=== PATIENT | female | born 1945 | race Caucasian/White ===

== ENCOUNTER 2016-06-24 15:39 | Emergency (ER) | payer OTHER ==
--- NOTE | 2016-06-24 18:06 | DIAGNOSTIC IMAGING REPORT ---
PROCEDURE: XR CHEST 2 VIEW INDICATION: CHEST PAIN TECHNIQUE: PA and lateral view. COMPARISON: None. FINDINGS: Hyperinflation with mildly increased right apical density suggestive of an infiltrate or possibly a mass. Left lung is clear. Heart size, mediastinum and pulmonary vessels are normal. Old right seventh rib fracture. IMPRESSION: 1. Small right apical infiltrate versus pulmonary nodule versus summation artifact. Recommend lordotic view. 2. Hyperinflation 3. Results discussed with Dr. Walker
--- NOTE | 2016-06-24 18:41 | DIAGNOSTIC IMAGING REPORT ---
PROCEDURE: XR CHEST 1 VIEW INDICATION: Follow-up right apical infiltrate versus nodule. TECHNIQUE: Portable AP lordotic view (1820 hours) COMPARISON: Compared to chest x-ray earlier today (06/24/2016, 1745 hours). FINDINGS: Findings suggest mild biapical symmetric parenchymal scarring. Lungs are otherwise clear. Heart and mediastinum are normal. There is an old right seventh lateral rib fracture. IMPRESSION: 1. Chronic obstructive pulmonary disease. 2. Findings suggest mild biapical parenchymal scarring. 3. Otherwise negative chest. 4. Findings discussed with Dr. Willie Walker.
--- NOTE | 2016-06-24 22:17 | ED CLINICAL REPORT ---
Clinical Report - Physicians/Mid Levels [facility] [address] [place] [address] 06/24/2016 15:40 Patient: WALLY MAIER Time Seen: 16:21. Historian- patient. CPT: ER phys charges level 5 plus (#[id number]). EKG interpretation (#[id number]). HISTORY OF PRESENT ILLNESS Chief Complaint: CHEST PAIN and DISCOMFORT. At its maximum, severity described as 10 / 10. When seen in the E.D., severity described as 3 / 10. (CHEST DISCOMFORT and (felt like indigestion, but states it was higher in her chest than indigestion. also c/o left arm discomfort, shakey, new headache that is different from her usual headaches.). She denies any history of heart disease and reflux GI problems or pulmonary problems. Risk factors positive for smoking cholesterol and family history. patient indicates that she had severe chest pain all day yesterday at a level of 10 out of 10. That it felt like bad indigestion so she did not come in. This pain lasted most of the day and then got better today. Today the pain as a 3 out of 10. Nothing seemed to make it better or worse. She was able to take deep breaths exercise and eat without any change in the pain. She's never had this pain before. She has had no fever sweats chills nausea vomiting or diarrhea. No cough or dyspnea or abdominal pain.). Is still present. Onset during light activity. It is described as burning and "pain" and it is described as located in the right chest, central chest and left chest area. No nausea, vomiting or diaphoresis. She has had difficulty breathing. Similar symptoms previously: None. Recent medical care: Not recently seen/assessed. REVIEW OF SYSTEMS No fever, chills, cough, pedal edema or calf pain. No fainting episodes, sore throat, abdominal pain, black stools or difficulty with urination. No skin rash, enlarged lymph nodes, joint pain or bloody stools. All systems otherwise negative, except as recorded above. PAST HISTORY Hyperlipidemia. Back surgery - Cyst removed. Herpes Zoster. No history of aortic disease, coronary artery disease, heart disease, lung disease or GI disease. No history of congestive heart failure, heart rhythm problems, hypertension or diabetes mellitus. Medications: Topical Medical Marijuana (for shingles pain). Vitamin c Oral. Vitamin D Oral. Calcium. Ibuprofen Oral, as needed. Effexor XR Oral, daily. Vitamins/Minerals Oral. Allergies: No Known Drug Allergy. SOCIAL HISTORY Heavy tobacco smoker (cigarette)- 1 pack per day. Occasional alcohol use. FAMILY HISTORY History of heart disease with premature onset. ADDITIONAL NOTES The nursing notes have been reviewed. PHYSICAL EXAM Vital Signs: 06/24/2016 16:08 BP: 135/67. HR: 76. RR: 16. O2 saturation: 100%. Temp: 97.8 F. Pain level now: 310. Appearance: Alert. No acute distress. Anxious. Eyes: Pupils equal, round and reactive to light. Eyes normal inspection. ENT: Ears normal. Nose normal. Pharynx normal. Neck: Normal inspection. Neck supple. CVS: Normal heart rate and rhythm. Heart sounds normal. Pulses normal. Respiratory: No respiratory distress. Breath sounds normal. Chest nontender. Abdomen: Soft and nontender. Bowel sounds normal. No mass. Back: Normal external inspection. Skin: Skin warm. Normal skin color. No rash. Extremities: Extremities exhibit normal ROM. No lower extremity edema. Neuro: Oriented X 3. No motor deficit. No sensory deficit. Reflexes normal. LABS, X-RAYS, AND EKG EKG: Normal EKG. Chest X-ray: Small, patchy infiltrate in the right apex and right upper lobe. Hyperinflation present. Flattening of the hemidiaphragm. (Will get lordotic view.). Views: PA and lateral. Technique: good. The X-rays were independently viewed by me, interpreted by the radiologist and discussed with the radiologist. Laboratory Tests: CBC w Diff: (ARAM: 06/24/2016 16:28) ( MsgRcvd 06/24/2016 17:41) Final results Test Result Flag Units (Reference) WHITE BLOOD COUNT 10.2 K/uL (4.5-11.5) RED BLOOD COUNT 4.50 M/uL (4.00-5.20) HEMOGLOBIN 14.2 gm/dL (12.0-16.0) HEMATOCRIT 43.2 % (36.0-46.0) MEAN CELL VOLUME 96 fL (80-100) MEAN CORPUSCULAR HGB 32 pg (26-34) MEAN CORPUSCULAR HGB CONC 33 g/dL (31-37) RED CELL DISTRIBUTION WIDTH 14.4 % (11.6-14.8) PLATELET COUNT 308 K/uL (150-400) NEUTROPHIL % 70.6 % (50-75) LYMPH % 21.4 L % (25-40) MONO % 6.7 % (3-14) EOSINOPHIL % 1.1 % (0-4) BASOPHIL % 0.2 % (0-2) [id number]: (ARAM: 06/24/2016 16:28) ( [facility] 06/24/2016 18:33) Final results Test Result Flag Units (Reference) D-DIMER QUANTITATIVE 0.32 ug/mLFEU (0.27-0.52) The primary value of this quantitative assay relates toits negative predictive value (i.e. exclusion) of pulmonaryembolism/deep vein thrombosis/DIC.Elevated levels of d-dimer may also occur with:, age, cancer, inflammation, liver disease,post-op, infection, hematoma, coronary disease, peripheralarteriopathy, bleeding disorders and thrombolytic treatment.Results should be correlated with other clinical andradiological data.Testing Methodology: Latex Immunoassay Lipase: (ARAM: 06/24/2016 16:28) ( [facility] 06/24/2016 18:03) Final results Test Result Flag Units (Reference) LIPASE 274 U/L (73-393) AMYLASE 97 U/L (25-115) BNP: (ARAM: 06/24/2016 16:28) ( [facility] 06/24/2016 18:08) Final results Test Result Flag Units (Reference) B-TYPE NATRIURETIC PEPTIDE 67.6 pg/ml (5-100) CHEM 13 PANEL: (ARAM: 06/24/2016 16:28) ( [facility] 06/24/2016 18:02) Final results Test Result Flag Units (Reference) GLUCOSE 99 mg/dL (70-110) BUN 16 mg/dL (7-18) CREATININE 0.8 mg/dL (0.6-1.3) Estimated GFR >60 mL/min Estimated GFR- >60 mL/min Note: Persistent reduction over 3 months in eGFR<60 mL/min/1.73 m2 defines CKD. Patients with eGFR values>=60 mL/min/1.73 m2 may also have CKD if evidence ofpersistent proteinuria. Additional information may be foundat [email or web address].org. SODIUM 143 mmol/L (136-145) POTASSIUM 3.6 mmol/L (3.5-5.1) CHLORIDE 103 mmol/L (98-107) CARBON DIOXIDE 29 mmol/L (21-32) CALCIUM 9.6 mg/dL (8.5-10.1) TOTAL PROTEIN 8.3 H g/dL (6.4-8.2) ALBUMIN 4.4 g/dL (3.3-5.0) BILIRUBIN, TOTAL 0.7 mg/dL (0.0-1.0) ALKALINE PHOSPHATASE 64 U/L (46-116) AST (SGOT) 27 U/L (15-37) ALT (SGPT) 26 U/L (12-78) MAGNESIUM 2.1 mg/dL (1.8-2.4) CPK 76 U/L (24-260) TROPONIN I 0.05 ng/mL (0.00-1.5) TROPONIN REFERENCE RANGE:<0.1 NEGATIVE0.1-1.5 INDETERMINANT>1.5 POSITIVE . Note - Tests: (Lordotic CXR patchy infiltrates , bilateral apices, right greater than left.). PROGRESS AND PROCEDURES Course of Care: Heplock ASA 325 mg po White GI cocktail. 18:06 06/24/16. Discussed with radiologist and the patient has a right apical infiltrate. This will be reassessed with lordotic view chest x-ray. We'll also had a d-dimer. Pt with a day and a half of pain with 2 negative troponins. Pt has been pain free. Pt wants to go home.; Will discharge to follow up tomorrow,. Patient/family counseled. Disposition: Discharged. Condition: stable. CLINICAL IMPRESSION Atypical chest pain .12 lead EKG performed. Right upper lobe patchy infiltrate. INSTRUCTIONS No strenuous activity. Rest. Avoid stimulants (such as cigarettes, coffee, cold medicines, sinus medicines, street drugs). Warnings: Further evaluation is necessary. GENERAL WARNINGS: Return or contact your physician immediately if your condition worsens or changes unexpectedly, if not improving as expected, or if other problems arise. Prescription Medications: Carafate 1 gm tablets: take 1 orally four times daily (1 hour before meals and at bedtime). Dispense sixty (60). No refills. Substitution is permissible. Prilosec 40 mg capsules: take 1 capsule orally every day for 10 days. Dispense ten (10). No refill. Substitution is permissible. Follow-up: Return to the emergency department If pain returns. Follow up with your doctor tomorrow in one day. Call for the next available appointment. Reason for referral: For chest pain and for finding on your right lung that needs a CT scan. Understanding of the discharge instructions verbalized by patient. (Electronically signed by Willie Walker MD 06/28/2016 1:19)
--- NOTE | 2016-06-24 22:17 | ED ORDER SUMMARY ---
..... Patient: WALLY MAIER OrderSheet [facility] VisitID: [id number] [place] [address] 70y, F Registration Date/Time: 06/24/2016 ORDER SHEET Weight: 43.5 kg (stated) Allergies: No Known Drug Allergy GENERAL ORDERS: EKG - ER Stat (16:23 06/24/2016 JSimbeck R.N. per protocol) (Ack 16:25 TBergley) (16:43 JSimbeck R.N.) Chest 2V Urgent (17:34 06/24/2016 Payton BWOLING) (Ack 17:36 TBergley) (17:56 JSimbeck R.N.) Forklift Supervisor (Continuous) (17:34 06/24/2016 Payton BOWLING) (Ack 17:36 TBergley) (17:38 JSimbeck R.N.) Cardiac Panel Stat (17:35 06/24/2016 Payton BOWLING) (Ack 17:36 TBergley) (17:37 JSimbeck R.N.) BNP Urgent (17:35 06/24/2016 Payton BOWLING) (Ack 17:36 TBergley) (17:37 JSimbeck R.N.) Oxygen (2 L/min) (NC) (17:35 06/24/2016 Payton BOWLING) (Ack 17:36 TBergley) (17:38 JSimbeck R.N.) Pulse oximeter (17:35 06/24/2016 Payton BOWLING) (Ack 17:36 TBergley) (17:38 JSimbeck R.N.) Amylase Urgent (17:47 06/24/2016 Payton BOWLING) (Ack 17:49 TBergley) (17:56 JSimbeck R.N.) Lipase Urgent (17:47 06/24/2016 Payton BOWLING) (Ack 17:49 TBergley) (17:56 JSimbeck R.N.) D-Dimer Urgent (18:05 06/24/2016 Payton BOWLING) (Ack 18:08 TBergley) (19:50 TBergley) Chest 1V (lordotic view to evaluate RUL infiltrate. ) Urgent (18:05 06/24/2016 Payton BOWLING) (Ack 18:08 TBergley) (18:29 Rod) Troponin-I Urgent (22:28 06/24/2016 Payton BOWLING) (Ack 22:28 TBergley) MEDICATION ORDERS: Aspirin PO 325 mg (NOW) (17:35 06/24/2016 Payotn BOWLING) (Ack 17:47 Jameseck R.N.) (17:56 Jameseck R.N.) GI Cocktail WHITE PO 50 mL (NOW) (17:35 06/24/2016 Payton BOWLING) (Ack 17:47 Jameseck R.N.) (17:56 Jameseck R.N.) Alprazolam PO 0.5 mg (NOW) (19:54 06/24/2016 Payton BOWLING) (19:57 DARAeyer R.N.) Carafate PO 20 ml (NOW) (22:47 06/24/2016 Payton BOWLING) (23:16 DBeyer R.N.) Protonix PO 40 mg (NOW) (22:48 06/24/2016 Payton BOWLING) (23:16 DBeyer R.N.) IV FLUIDS: IV Saline Lock (16:43 06/24/2016 Emerald R.N. per protocol) (16:43 Jameseck R.N.) ORDER SHEET NOTES: [Electronically signed by Niko Bridges R.N. (04:53 06/25/2016)] [Electronically signed by Willie Walker MD (01:19 06/28/2016)] [Electronically locked/signed by Niko Bridges R.N. (04:53 06/25/2016)]
--- NOTE | 2016-06-24 22:17 | ED NURSING NOTES ---
Clinical Report - Nurses [facility] [address] [place] [address] 06/24/2016 15:40 Patient: WALLY MAIER TRIAGE Triage time 16:05. Acuity: LEVEL 3. Chief Complaint: CHEST DISCOMFORT and (felt like indigestion, but states it was higher in her chest than indigestion. also c/o left arm discomfort, shakey, new headache that is different from her usual headaches.). 16:19 06/24/16. SEPSIS SCREEN: Sepsis Screen. Negative (no infection suspected/documented). SORAIDA COMA SCORE: Drury Coma Scale: 10- eyes open spontaneously (4); best motor response- obeys commands (6). --16:19 Vincent Mantilla R.N. 16:08 06/24/16. BP: 135/67. HR: 76. RR: 16. O2 saturation: 100% on room air. Temp: 97.8 F (oral). Pain level now: 3/10. Additional comments: (headache is 3/10, chest 1/10). --16:19 Vincent Mantilla R.N. Weight: 43.5 kg stated. Height/Length: 64 inches Per Patient. BMI: 16.5. --16:14 Vincent Mantilla R.N. Medications Vitamins/Minerals Oral. --16:10 Vincent Mantilla R.N. Effexor XR Oral, daily. --16:10 Vincent Mantilla R.N. Ibuprofen Oral, as needed. --16:11 Vincent Mantilla R.N. Calcium. --16:11 Vincent Mantilla R.N. Vitamin D Oral. --16:12 Vincent Mantilla R.N. Vitamin c Oral. --16:12 Vincent Mantilla R.N. Topical Medical Marijuana (for shingles pain). --16:15 Vincent Mantilla R.N. Allergies No Known Drug Allergy. --16:10 Vincent Mantilla R.N. History Arrived by private vehicle. Historian: patient. This started yesterday. SOCIAL HX: Heavy tobacco smoker (cigarette)- less than 1 pack per day. Occasional alcohol use. No drug use. ABUSE ASSESSMENT: No report of abuse. --16:19 Vincent Mantilla R.N. PROBLEMS: Herpes Zoster. --16:13 Vincent Mantilla R.N. ADDITIONAL SURGERIES: Back surgery - Cyst removed. --16:13 Vincent Mantilla R.N. Interventions ID band on patient. To treatment room. --16:19 Vincent Mantilla R.N. NURSING PROGRESS NOTES 16:38 06/24/2016 Site #1 started via IV in the right antecubital space with an 20g angiocath, with aseptic technique and good blood return; one attempt. Blood drawn: rainbow set. Labeled in the presence of the patient and sent to the lab. Saline lock flushed with 10 mL saline. --16:42 Vincent Mantilla R.N. EKG time: (1645). EKG was performed by a tech and shown to the ED physician. --16:55 Denise Church 17:50 06/24/2016 Aspirin PO Tablets 325 mg given. Allergies verified and confirmed 5 rights. --17:56 Vincent Mantilla R.N. 17:50 06/24/2016 GI COCKTAIL WHITE (Simethicone) PO Oral Suspension 50 mL given. Allergies verified and confirmed 5 rights. --17:56 Vincent Mantilla R.N. 19:03 06/24/2016 GI COCKTAIL WHITE PO Response: no adverse reaction symptoms are the same. The patient feels the same. --19:03 Vincent Mantilla R.N. 19:03 06/24/16. Care transferred and report given (RITO Pope). --19:03 Vincent Mantilla R.N. 19:22 06/24/16. BP: 121/55. HR: 70. O2 saturation: 100%. --19:23 Niko Bridges R.N. ( Pain is 1/10 GI cocktail no relief). --19:23 Niko Bridges R.N. 19:57 06/24/2016 Alprazolam PO 0.5 mg given. Allergies verified, confirmed 5 rights and sedative warning given. --19:57 Niko Bridges R.N. ( Pt resting in bed informed of plan to admit verbalized understanding.). --20:06 Niko Bridges R.N. ( pt ambulated to bathroom steady on her feet.). --21:12 Niko Bridges R.N. 21:12 06/24/16. BP: 132/71. HR: 76. --21:12 Niko Bridges R.N. 21:24 06/24/16. O2 saturation: 97%. --21:24 Niko Bridges R.N. 22:07 06/24/16. BP: 103/46. O2 saturation: 99%. --22:07 Niko Bridges R.N. ( pt resting in bed denies needs at this time). --22:11 Niko Bridges R.N. 22:40 06/24/16. BP: 110/56. O2 saturation: 96%. --22:40 Niko Bridges R.N. 23:16 06/24/2016 Carafate (Sucralfate) PO 2 gm given. Allergies verified and confirmed 5 rights. --23:16 Niko Bridges R.N. 23:16 06/24/2016 Protonix (Pantoprazole Sodium) PO 40 mg given. Allergies verified and confirmed 5 rights. --23:16 Niko Bridges R.N. DISPOSITION / DISCHARGE 23:18 06/24/16. BP: 123/65. HR: 70. RR: 18. O2 saturation: 96%. Temp: 98.3 F. Pain level now 06/08. --23:19 Niko Bridges R.N. 23:27 06/24/2016 Site #1 removed upon discharge. Bandage applied. --23:27 Niko Bridges R.N. Departure time: 2324. Discharge instructions provided and reviewed with the patient and family. Reviewed medication(s) information. Patient and family verbalized understanding. Written instructions provided in [place]. The patient was discharged by the physician. She was discharged home and accompanied by family. She left the Emergency Department ambulatory and via private vehicle. Family member driving. ( Pt ambulated on discharge verbalized understanding of discharge instructions and follow up care). --23:28 Niko Bridges R.N. Locked/Released at 06/25/2016 4:53 by Niko Bridges R.N.
--- NOTE | 2016-06-24 22:17 | ED ORDER SUMMARY ---
..... Patient: WALLY MAIER OrderSheet [facility] VisitID: [id number] [place] [address] 70y, F Registration Date/Time: 06/24/2016 ORDER SHEET Weight: 43.5 kg (stated) Allergies: No Known Drug Allergy GENERAL ORDERS: EKG - ER Stat (16:23 06/24/2016 JSimbeck R.N. per protocol) (Ack 16:25 TBergley) (16:43 JSimbeck R.N.) Chest 2V Urgent (17:34 06/24/2016 Payton BOWLING) (Ack 17:36 TBergley) (17:56 JSimbeck R.N.) Data Lead (Continuous) (17:34 06/24/2016 Payton BOWLING) (Ack 17:36 TBergley) (17:38 JSimbeck R.N.) Cardiac Panel Stat (17:35 06/24/2016 Payton BOWLING) (Ack 17:36 TBergley) (17:37 JSimbeck R.N.) BNP Urgent (17:35 06/24/2016 Payton BOWLING) (Ack 17:36 TBergley) (17:37 JSimbeck R.N.) Oxygen (2 L/min) (NC) (17:35 06/24/2016 Payton BOWLING) (Ack 17:36 TBergley) (17:38 JSimbeck R.N.) Pulse oximeter (17:35 06/24/2016 Payton BOWLING) (Ack 17:36 TBergley) (17:38 JSimbeck R.N.) Amylase Urgent (17:47 06/24/2016 Payton BOWLING) (Ack 17:49 TBergley) (17:56 JSimbeck R.N.) Lipase Urgent (17:47 06/24/2016 Payton BOWLING) (Ack 17:49 TBergley) (17:56 JSimbeck R.N.) D-Dimer Urgent (18:05 06/24/2016 Payton BOWLING) (Ack 18:08 TBergley) (19:50 TBergley) Chest 1V (lordotic view to evaluate RUL infiltrate. ) Urgent (18:05 06/24/2016 Payton BOWLING) (Ack 18:08 TBergley) (18:29 Rod) Troponin-I Urgent (22:28 06/24/2016 Payton BOWLING) (Ack 22:28 TBergley) MEDICATION ORDERS: Aspirin PO 325 mg (NOW) (17:35 06/24/2016 Payton BOWLING) (Ack 17:47 Jameseck R.N.) (17:56 Jameseck R.N.) GI Cocktail WHITE PO 50 mL (NOW) (17:35 06/24/2016 Payton BOWLING) (Ack 17:47 Jameseck R.N.) (17:56 Jameseck R.N.) Alprazolam PO 0.5 mg (NOW) (19:54 06/24/2016 Payton BOWLING) (19:57 DARAeyer R.N.) Carafate PO 20 ml (NOW) (22:47 06/24/2016 Payton BOWLING) (23:16 DBeyer R.N.) Protonix PO 40 mg (NOW) (22:48 06/24/2016 Payton BOWLING) (23:16 DBeyer R.N.) IV FLUIDS: IV Saline Lock (16:43 06/24/2016 Emerald R.N. per protocol) (16:43 Jameseck R.N.) ORDER SHEET NOTES: [Electronically signed by Niko Bridges R.N. (04:53 06/25/2016)] [Electronically signed by Willie Walker MD (01:19 06/28/2016)] [Electronically locked/signed by Niko Bridges R.N. (04:53 06/25/2016)]
--- NOTE | 2016-06-28 01:19 | ED DISCHARGE INSTRUCTIONS ---
Patient: WALLY MAIER General Instructions [facility] VisitID: [id number] [place] [address] 70y, F Registration Date/Time: 06/24/2016 Atypical chest pain .12 lead EKG performed. Right upper lobe patchy infiltrate. INSTRUCTIONS No strenuous activity. Rest. Avoid stimulants (such as cigarettes, coffee, cold medicines, sinus medicines, street drugs). Warnings: Further evaluation is necessary. GENERAL WARNINGS: Return or contact your physician immediately if your condition worsens or changes unexpectedly, if not improving as expected, or if other problems arise. Prescription Medications: Carafate 1 gm tablets: take 1 orally four times daily (1 hour before meals and at bedtime). Dispense sixty (60). No refills. Substitution is permissible. Prilosec 40 mg capsules: take 1 capsule orally every day for 10 days. Dispense ten (10). No refill. Substitution is permissible. Follow-up: Return to the emergency department If pain returns. Follow up with your doctor tomorrow in one day. Call for the next available appointment. Reason for referral: For chest pain and for finding on your right lung that needs a CT scan. Understanding of the discharge instructions verbalized by patient. ADDITIONAL INFORMATION Chest Pain, Noncardiac Based on your visit today, the exact cause of your chest pain is not certain. Your condition does not seem serious and your pain does not appear to be coming from your heart. However, sometimes the signs of a serious problem take more time to appear. Therefore, please watch for the warning signs listed below. Home Care: Rest today and avoid strenuous activity. Take any prescribed medicine as directed. Follow Up with your doctor or this facility as instructed or if you do not start to feel better within 24 hours. Get Prompt Medical Attention if any of the following occur: A change in the type of pain: if it feels different, becomes more severe, lasts longer, or begins to spread into your shoulder, arm, neck, jaw or back Shortness of breath or increased pain with breathing Cough with dark colored sputum (phlegm) or blood Weakness, dizziness, or fainting Fever of 100.4F (38C) or higher, or as directed by your healthcare provider Swelling, pain or redness in one leg Omeprazole Magnesium Gastro-resistant tablet What is this medicine? OMEPRAZOLE (oh ME pray zol) prevents the production of acid in the stomach. It is used to treat the symptoms of heartburn. You can buy this medicine without a prescription. This product is not for long-term use, unless otherwise directed by your doctor or health child care center administrator. How should I use this medicine? Take this medicine by mouth. Follow the directions on the product label. If you are taking this medicine without a prescription, take one tablet every day. Do not use for longer than 14 days or repeat a course of treatment more often than every 4 months unless directed by a doctor or healthcare professional. Take your dose at regular intervals every 24 hours. Swallow the tablet whole with a drink of water. Do not crush, break or chew. This medicine works best if taken on an empty stomach 30 minutes before breakfast. If you are using this medicine with the prescription of your doctor or healthcare professional, follow the directions you were given. Do not take your medicine more often than directed. Talk to your centralized traffic control operator regarding the use of this medicine in children. Special care may be needed. What side effects may I notice from receiving this medicine? Side effects that you should report to your doctor or health child care center administrator as soon as possible: allergic reactions like skin rash, itching or hives, swelling of the face, lips, or tongue bone, muscle or joint pain breathing problems chest pain or chest tightness dark yellow or brown urine diarrhea dizziness fast, irregular heartbeat feeling faint or lightheaded fever or sore throat muscle spasm palpitations redness, blistering, peeling or loosening of the skin, including inside the mouth seizures tremors unusual bleeding or bruising unusually weak or tired yellowing of the eyes or skin Side effects that usually do not require medical attention (Report these to your doctor or health child care center administrator if they continue or are bothersome.): constipation dry mouth headache loose stools nausea What may interact with this medicine? Do not take this medicine with any of the following medications: atazanavir clopidogrel nelfinavir This medicine may also interact with the following medications: ampicillin certain medicines for anxiety or sleep certain medicines that treat or prevent blood clots like warfarin cyclosporine diazepam digoxin disulfiram iron salts phenytoin prescription medicine for fungal or yeast infection like itraconazole, ketoconazole, voriconazole saquinavir tacrolimus What if I miss a dose? If you miss a dose, take it as soon as you can. If it is almost time for your next dose, take only that dose. Do not take double or extra doses. Where should I keep my medicine? Keep out of the reach of children. Store at room temperature between 20 and 25 degrees C (68 and 77 degrees F). Protect from light and moisture. Throw away any unused medicine after the expiration date. What should I tell my health care provider before I take this medicine? They need to know if you have any of these conditions: black or bloody stools chest pain difficulty swallowing have had heartburn for over 3 months have heartburn with dizziness, lightheadedness or sweating liver disease stomach pain unexplained weight loss vomiting with blood wheezing an unusual or allergic reaction to omeprazole, other medicines, foods, dyes, or preservatives or trying to get breast-feeding What should I watch for while using this medicine? It can take several days before your heartburn gets better. Check with your doctor or health child care center administrator if your condition does not start to get better, or if it gets worse. Do not treat diarrhea with over the counter products. Contact your doctor if you have diarrhea that lasts more than 2 days or if it is severe and watery. Do not treat yourself for heartburn with this medicine for more than 14 days in a row. You should only use this medicine for a 2-week treatment period once every 4 months. If your symptoms return shortly after your therapy is complete, or within the 4 month time frame, call your doctor or health child care center administrator. You have been given the following additional information: Chest Pain, Noncardiac Omeprazole Magnesium Gastro-resistant tablet No strenuous activity. Rest. (Electronically signed by Willie Walker MD 06/28/2016 1:19)
--- NOTE | 2016-06-28 01:19 | ED MAR SUMMARY ---
..... Medication Administration Record [facility] [address] [place] [address] Patient: WALLY MAIER Visit ID: [id number] 70y, F Weight: 43.5 kg Height/Length: 64 in BMI: 16.5 ALLERGIES: No Known Drug Allergy Given 17:50 06/24/2016 Vincent Mantilla R.N. Medication Administered: ASPIRIN [PO], Dose: 325 mg Tablets PO. Medication Ordered: Aspirin PO 325 mg (NOW). Given 17:50 06/24/2016 Vincent Mantilla R.N. Medication Administered: GI COCKTAIL WHITE [PO] (SIMETHICONE), Dose: 50 mL Oral Suspension PO. Medication Ordered: GI Cocktail WHITE PO 50 mL (NOW). Given 19:57 06/24/2016 Niko Bridges R.N. Medication Administered: ALPRAZOLAM [PO], Dose: 0.5 mg PO. Medication Ordered: Alprazolam PO 0.5 mg (NOW). Given 23:16 06/24/2016 Niko Bridges R.NTim Medication Administered: CARAFATE [PO] (SUCRALFATE), Dose: 2 gm PO. Medication Ordered: Carafate PO 20 ml (NOW). Given 23:16 06/24/2016 Niko Bridges R.NTim Medication Administered: PROTONIX [PO] (PANTOPRAZOLE SODIUM), Dose: 40 mg PO. Medication Ordered: Protonix PO 40 mg (NOW).
--- NOTE | 2016-06-28 01:19 | ED DISCHARGE INSTRUCTIONS ---
Patient: WALLY MAIER General Instructions [facility] VisitID: [id number] [place] [address] 70y, F Registration Date/Time: 06/24/2016 Atypical chest pain .12 lead EKG performed. Right upper lobe patchy infiltrate. INSTRUCTIONS No strenuous activity. Rest. Avoid stimulants (such as cigarettes, coffee, cold medicines, sinus medicines, street drugs). Warnings: Further evaluation is necessary. GENERAL WARNINGS: Return or contact your physician immediately if your condition worsens or changes unexpectedly, if not improving as expected, or if other problems arise. Prescription Medications: Carafate 1 gm tablets: take 1 orally four times daily (1 hour before meals and at bedtime). Dispense sixty (60). No refills. Substitution is permissible. Prilosec 40 mg capsules: take 1 capsule orally every day for 10 days. Dispense ten (10). No refill. Substitution is permissible. Follow-up: Return to the emergency department If pain returns. Follow up with your doctor tomorrow in one day. Call for the next available appointment. Reason for referral: For chest pain and for finding on your right lung that needs a CT scan. Understanding of the discharge instructions verbalized by patient. ADDITIONAL INFORMATION Chest Pain, Noncardiac Based on your visit today, the exact cause of your chest pain is not certain. Your condition does not seem serious and your pain does not appear to be coming from your heart. However, sometimes the signs of a serious problem take more time to appear. Therefore, please watch for the warning signs listed below. Home Care: Rest today and avoid strenuous activity. Take any prescribed medicine as directed. Follow Up with your doctor or this facility as instructed or if you do not start to feel better within 24 hours. Get Prompt Medical Attention if any of the following occur: A change in the type of pain: if it feels different, becomes more severe, lasts longer, or begins to spread into your shoulder, arm, neck, jaw or back Shortness of breath or increased pain with breathing Cough with dark colored sputum (phlegm) or blood Weakness, dizziness, or fainting Fever of 100.4F (38C) or higher, or as directed by your healthcare provider Swelling, pain or redness in one leg Omeprazole Magnesium Gastro-resistant tablet What is this medicine? OMEPRAZOLE (oh ME pray zol) prevents the production of acid in the stomach. It is used to treat the symptoms of heartburn. You can buy this medicine without a prescription. This product is not for long-term use, unless otherwise directed by your doctor or health child care nurse. How should I use this medicine? Take this medicine by mouth. Follow the directions on the product label. If you are taking this medicine without a prescription, take one tablet every day. Do not use for longer than 14 days or repeat a course of treatment more often than every 4 months unless directed by a doctor or healthcare professional. Take your dose at regular intervals every 24 hours. Swallow the tablet whole with a drink of water. Do not crush, break or chew. This medicine works best if taken on an empty stomach 30 minutes before breakfast. If you are using this medicine with the prescription of your doctor or healthcare professional, follow the directions you were given. Do not take your medicine more often than directed. Talk to your car repairman regarding the use of this medicine in children. Special care may be needed. What side effects may I notice from receiving this medicine? Side effects that you should report to your doctor or health child care nurse as soon as possible: allergic reactions like skin rash, itching or hives, swelling of the face, lips, or tongue bone, muscle or joint pain breathing problems chest pain or chest tightness dark yellow or brown urine diarrhea dizziness fast, irregular heartbeat feeling faint or lightheaded fever or sore throat muscle spasm palpitations redness, blistering, peeling or loosening of the skin, including inside the mouth seizures tremors unusual bleeding or bruising unusually weak or tired yellowing of the eyes or skin Side effects that usually do not require medical attention (Report these to your doctor or health child care nurse if they continue or are bothersome.): constipation dry mouth headache loose stools nausea What may interact with this medicine? Do not take this medicine with any of the following medications: atazanavir clopidogrel nelfinavir This medicine may also interact with the following medications: ampicillin certain medicines for anxiety or sleep certain medicines that treat or prevent blood clots like warfarin cyclosporine diazepam digoxin disulfiram iron salts phenytoin prescription medicine for fungal or yeast infection like itraconazole, ketoconazole, voriconazole saquinavir tacrolimus What if I miss a dose? If you miss a dose, take it as soon as you can. If it is almost time for your next dose, take only that dose. Do not take double or extra doses. Where should I keep my medicine? Keep out of the reach of children. Store at room temperature between 20 and 25 degrees C (68 and 77 degrees F). Protect from light and moisture. Throw away any unused medicine after the expiration date. What should I tell my health care provider before I take this medicine? They need to know if you have any of these conditions: black or bloody stools chest pain difficulty swallowing have had heartburn for over 3 months have heartburn with dizziness, lightheadedness or sweating liver disease stomach pain unexplained weight loss vomiting with blood wheezing an unusual or allergic reaction to omeprazole, other medicines, foods, dyes, or preservatives or trying to get breast-feeding What should I watch for while using this medicine? It can take several days before your heartburn gets better. Check with your doctor or health child care nurse if your condition does not start to get better, or if it gets worse. Do not treat diarrhea with over the counter products. Contact your doctor if you have diarrhea that lasts more than 2 days or if it is severe and watery. Do not treat yourself for heartburn with this medicine for more than 14 days in a row. You should only use this medicine for a 2-week treatment period once every 4 months. If your symptoms return shortly after your therapy is complete, or within the 4 month time frame, call your doctor or health child care nurse. You have been given the following additional information: Chest Pain, Noncardiac Omeprazole Magnesium Gastro-resistant tablet No strenuous activity. Rest. (Electronically signed by Willie Walker MD 06/28/2016 1:19)
--- NOTE | 2016-06-28 01:19 | ED MED RECONCILIATION SUMMARY ---
Patient: WALLY MAIER Medication Reconciliation Report [facility] VisitID: [id number] [place] [address] 70y, F Registration Date/Time: 06/24/2016 Weight: 43.5 kg Height/Length: 64 in. BMI: 16.5 ALLERGIES: No Known Drug Allergy The patient's Home Medications are listed below: THE FOLLOWING MEDICATIONS NEED TO BE RECONCILED: Calcium Effexor XR Oral, daily Ibuprofen Oral Topical Medical Marijuana (for shingles pain) Vitamin c Oral Vitamin D Oral Vitamins/Minerals Oral The source(s) of the original Home Medication information: Not obtained. The following Medications were given to the patient in the Emergency Department: Aspirin [PO] PO 325 mg, administered: 06/24/2016 5:50:00 PM GI COCKTAIL WHITE [PO] PO 50 mL, administered: 06/24/2016 5:50:00 PM Alprazolam [PO] PO 0.5 mg, administered: 06/24/2016 7:57:00 PM Carafate [PO] PO 2 gm, administered: 06/24/2016 11:16:00 PM Protonix [PO] PO 40 mg, administered: 06/24/2016 11:16:00 PM The following Medications were prescribed to the patient: Carafate 1 gm tablets: take 1 orally four times daily (1 hour before meals and at bedtime). Dispense sixty (60). No refills. Substitution is permissible. -- Willie Walker MD Prilosec 40 mg capsules: take 1 capsule orally every day for 10 days. Dispense ten (10). No refill. Substitution is permissible. -- Willie Walker MD
--- NOTE | 2016-06-28 01:19 | ED MED RECONCILIATION SUMMARY ---
Patient: WALLY MAIER Medication Reconciliation Report [facility] VisitID: [id number] [place] [address] 70y, F Registration Date/Time: 06/24/2016 Weight: 43.5 kg Height/Length: 64 in. BMI: 16.5 ALLERGIES: No Known Drug Allergy The patient's Home Medications are listed below: THE FOLLOWING MEDICATIONS NEED TO BE RECONCILED: Calcium Effexor XR Oral, daily Ibuprofen Oral Topical Medical Marijuana (for shingles pain) Vitamin c Oral Vitamin D Oral Vitamins/Minerals Oral The source(s) of the original Home Medication information: Not obtained. The following Medications were given to the patient in the Emergency Department: Aspirin [PO] PO 325 mg, administered: 06/24/2016 5:50:00 PM GI COCKTAIL WHITE [PO] PO 50 mL, administered: 06/24/2016 5:50:00 PM Alprazolam [PO] PO 0.5 mg, administered: 06/24/2016 7:57:00 PM Carafate [PO] PO 2 gm, administered: 06/24/2016 11:16:00 PM Protonix [PO] PO 40 mg, administered: 06/24/2016 11:16:00 PM The following Medications were prescribed to the patient: Carafate 1 gm tablets: take 1 orally four times daily (1 hour before meals and at bedtime). Dispense sixty (60). No refills. Substitution is permissible. -- Willie Walker MD Prilosec 40 mg capsules: take 1 capsule orally every day for 10 days. Dispense ten (10). No refill. Substitution is permissible. -- Willie Walker MD
--- NOTE | 2016-06-28 01:19 | ED MAR SUMMARY ---
..... Medication Administration Record [facility] [address] [place] [address] Patient: WALLY MAIER Visit ID: [id number] 70y, F Weight: 43.5 kg Height/Length: 64 in BMI: 16.5 ALLERGIES: No Known Drug Allergy Given 17:50 06/24/2016 Vincent Mantilla R.N. Medication Administered: ASPIRIN [PO], Dose: 325 mg Tablets PO. Medication Ordered: Aspirin PO 325 mg (NOW). Given 17:50 06/24/2016 Vincent Mantilla R.N. Medication Administered: GI COCKTAIL WHITE [PO] (SIMETHICONE), Dose: 50 mL Oral Suspension PO. Medication Ordered: GI Cocktail WHITE PO 50 mL (NOW). Given 19:57 06/24/2016 Niko Bridges R.N. Medication Administered: ALPRAZOLAM [PO], Dose: 0.5 mg PO. Medication Ordered: Alprazolam PO 0.5 mg (NOW). Given 23:16 06/24/2016 Niko Bridges R.NTim Medication Administered: CARAFATE [PO] (SUCRALFATE), Dose: 2 gm PO. Medication Ordered: Carafate PO 20 ml (NOW). Given 23:16 06/24/2016 Niko Bridges R.NTim Medication Administered: PROTONIX [PO] (PANTOPRAZOLE SODIUM), Dose: 40 mg PO. Medication Ordered: Protonix PO 40 mg (NOW).
== END 2016-06-24 23:25 | disposition home or self-care (01) ==
LOC: ED SRH 15:39
DX: R07.89 Other chest pain (principal); R91.8 Other nonspecific abnormal finding of lung field; E78.5 Hyperlipidemia, unspecified; F17.210 Nicotine dependence, cigarettes, uncomplicated
CPT/HCPCS: 90074; 90100; 90616; 91320; 91556; 92235; 92530; 92610; 92720; 95059